=== PATIENT | female | born 1995 | race Caucasian/White ===

== ENCOUNTER 2017-02-24 18:48 | Emergency (ER) | payer OTHER ==
[~2017-02-24] VITALS: Ht 154.9 cm; Wt 84.8 kg
[2017-02-24] MEDS ORDERED: IBUP-1114 PO (18:59)
[2017-02-24] MEDS ORDERED: BAYE325T12 PO (18:59)
[2017-02-24] MEDS ORDERED: KETOROLAC 60 MG/2 ML VIAL (J1885) IM ONE (19:15)
[2017-02-24] MEDS ORDERED: GI COCKTAIL 50ML BTL(HYOSCYAMINE/MAALOX/LIDOCAINE VISCOUS)(1:3:1) PO ONE (19:15)
[2017-02-24] MEDS ORDERED: diazePAM 5 MG TAB PO ONE (19:15)
[2017-02-24] MEDS ORDERED: NORCO, ANEXSIA 5/325MG TABLET (HYDROcodone/ACETAMINOPHEN) PO ONE (19:15)
[2017-02-24] MEDS ORDERED: PANTOPRAZOLE 40MG TAB (PROTONIX) PO ONE (19:15)
[2017-02-24] MEDS ORDERED: CYCL10TA PO (20:18)
[2017-02-24] MEDS ORDERED: PRIL20CA9 PO (20:18)
[2017-02-24] MEDS ORDERED: NAPR500T PO (20:18)
[2017-02-24 20:26] VITALS: BP 133/75
== END 2017-02-24 20:27 | disposition home or self-care (01) ==
LOC: M ED 18:48
DX: M54.5 Low back pain (principal); G89.29 Other chronic pain; K21.9 Gastro-esophageal reflux disease without esophagitis
CPT/HCPCS: 81025; 96372; 99283; J1885

== ENCOUNTER → 2017-04-14 | Outpatient (REF) | payer OTHER ==
[~2017-04-14] MED LIST: BAYE325T12 PO; CYCL10TA PO; IBUP-1114 PO; MOTR200T44 PO; NAPR500T PO; PRIL20CA9 PO; TYLE500T78 PO
== END ==
LOC: M SFHCLERA 15:00
PROVIDERS: ATTEND Nurse Practitioner Family
DX: N92.6 Irregular menstruation, unspecified (principal)

== ENCOUNTER 2017-06-11 19:57 | Emergency (ER) | payer OTHER ==
[~2017-06-11] VITALS: Ht 154.9 cm; Wt 90.9 kg
[2017-06-11 19:57] VITALS: BP 141/93
[~2017-06-11 19:57] MED LIST changes: -MOTR200T44 PO; -TYLE500T78 PO
[2017-06-11] MEDS ORDERED: MOTR200T44 PO (20:16)
[2017-06-11] MEDS ORDERED: TYLE500T78 PO (20:16)
[2017-06-11] MEDS ORDERED: CYCLOBENZAPRINE 10 MG TAB PO ONE (21:00)
[2017-06-11] MEDS ORDERED: CYCL10TA PO (21:01)
== END 2017-06-11 21:18 | disposition home or self-care (01) ==
LOC: M ED 19:57
DX: M54.41 Lumbago with sciatica, right side (principal); Z72.0 Tobacco use

== ENCOUNTER 2017-07-02 08:48 | Outpatient (RCR) | payer OTHER ==
[~2017-07-02 08:48] MED LIST changes: +MOTR200T44 PO; +TYLE500T78 PO
== END 2017-07-16 ==
LOC: M PT 08:48
PROVIDERS: ATTEND Nurse Practitioner Family
DX: Z51.89 Encounter for other specified aftercare (principal); M54.5 Low back pain

== ENCOUNTER 2018-08-29 15:53 | Outpatient (CLI) | payer OTHER ==
[~2018-08-29] VITALS: Ht 154.9 cm; Wt 90.4 kg
[~2018-08-29 15:53] MED LIST changes: +NAPR-50 PO; -NAPR500T PO
[2018-08-29] MEDS ORDERED: OMEP10CASR PO (16:11)
[2018-08-29] MEDS ORDERED: MAGN1TAB25 PO (16:11)
[2018-08-29] MEDS ORDERED: PRENTAB9 PO (16:11)
[2018-08-29 16:20] VITALS: BP 122/70
== END 2018-08-29 17:10 | disposition home or self-care (01) ==
LOC: M LDO 15:53
PROVIDERS: ATTEND Obstetrics & Gynecology
DX: O99.89 Other specified diseases and conditions complicating pregnancy, childbirth and the puerperium (principal); R10.30 Lower abdominal pain, unspecified; Z3A.20 20 weeks gestation of pregnancy
CPT/HCPCS: 87086; G0378; G0463

== ENCOUNTER → 2018-10-17 | Outpatient (REF) | payer OTHER ==
[~2018-10-17] MED LIST changes: +AZIT-12 PO; +DIFL150T PO; +MAGN1TAB25 PO; +OMEP10CASR PO; +PRENTAB9 PO
== END ==
LOC: M SFHCLERA 12:36
PROVIDERS: ATTEND Nurse Practitioner Family
DX: R11.10 Vomiting, unspecified (principal)

== ENCOUNTER 2018-10-19 18:10 | Emergency (ER) | payer OTHER ==
[~2018-10-19] VITALS: Ht 154.9 cm; Wt 90.9 kg
[~2018-10-19 18:10] MED LIST changes: -AZIT-12 PO; -DIFL150T PO
[2018-10-19] MEDS ORDERED: AZIT-12 PO (21:24)
[2018-10-19] MEDS ORDERED: DIFL150T PO (21:24)
[2018-10-19] MEDS ORDERED: AZITHROMYCIN 250 MG TAB PO ONE (21:30)
[2018-10-19 21:39] VITALS: BP 131/77
== END 2018-10-19 22:22 | disposition home or self-care (01) ==
LOC: M ED 18:10
DX: O99.89 Other specified diseases and conditions complicating pregnancy, childbirth and the puerperium (principal); H65.03 Acute serous otitis media, bilateral; O99.513 Diseases of the respiratory system complicating pregnancy, third trimester; O99.613 Diseases of the digestive system complicating pregnancy, third trimester; O99.343 Other mental disorders complicating pregnancy, third trimester; Z3A.28 28 weeks gestation of pregnancy; Z79.899 Other long term (current) drug therapy

== ENCOUNTER 2018-10-26 12:02 | Outpatient (CLI) | payer OTHER ==
[~2018-10-26] VITALS: Ht 154.9 cm; Wt 91.0 kg
[~2018-10-26 12:02] MED LIST changes: +AZIT-12 PO; +DIFL150T PO
[2018-10-26 12:36] VITALS: BP 126/76
[2018-10-26] MEDS ORDERED: LACTATED RINGER'S 1000 ML IV STA (12:38)
[2018-10-26] MEDS ORDERED: LR 1,000 ML IV SCH (12:38)
[2018-10-26] MEDS ORDERED: MAPA500T2 PO (12:53)
[2018-10-26] MEDS ORDERED: ONDANSETRON 4MG/2ML VIAL (J2405) IV ONE (13:00)
[2018-10-26] MEDS ORDERED: BICITRA 30ML SOLN UDC PO ONE (13:00)
[2018-10-26 13:22] LABS: AMORPHOUS SEDIMENT SMALL (NEGATIVE); APPEARANCE, URINE CLOUDY (CLEAR); BACTERIA, URINE AUTO NEGATIVE (NEGATIVE); BILIRUBIN, URINE AUTO NEGATIVE (NEGATIVE); BLOOD, URINE BLOOD NEGATIVE (NEGATIVE); COLOR, URINE AMBER (YELLOW); GLUCOSE, URINE (UA) AUTO NEGATIVE (NEGATIVE); KETONE, URINE AUTO NEGATIVE (NEGATIVE); LEUKOCYTE ESTERASE, URINE AUTO 2+ (NEGATIVE); MUCUS, URINE MODERATE (NEGATIVE); NITRITE, URINE AUTO NEGATIVE (NEGATIVE); PROTEIN, URINE AUTO 1+ mg/dL (NEGATIVE); RBC, URINE AUTO 3 /HPF (0-3); SPECIFIC GRAVITY URINE AUTO 1.024 (1.002-1.035); SQUAMOUS EPITHELIAL CELL UR AU 25 /HPF (0-6); WBC, URINE AUTO 18 /HPF (0-3)
[2018-10-26 14:46] VITALS: BP 117/66
--- NOTE | 2018-10-26 17:02 | IPNPDOC ---
Text Note Date of Service The patient was seen on 10/26/18. NOTE Triage Note Pt is a 23yo with SIUP at approx 28wk presenting to triage for CC of "dehydration"- she states she was told by RAJENDRA to come in for IV hydration since she has had 1.5wk of emesis after eating every meal except breakfast. She notes she was in the ER for IV hydration a week ago. She states this she has had very bad GERD symptoms that cause her to vomit after eating. She has Rx omeprazole but states "it doesn't work, so I just chew gum". She has no obstetric complaints- no bleeding, LOF, ctx. She feels good movement. Vitals wnl, afebrile General: WDWN, NAD, resting comfortably in bed Abdomen: soft, gravid, NTTP Extremities: no edema BLE Cat I FHRT with +accels, -decels, mod mar [place]: no ctx Labs: urinalysis shows no ketones, +WBC but also +squams so not a clean catch (no bacteria), spec grav 1.024 Assessment: Pt is a 23yo with SIUP at approx 28wk with 1.5wk of emesis related to her uncontrolled GERD, not compliant on her omeprazole. She was given 1L of LR IVF in triage with 8mg IV zofran and 30mg PO bicitra. After that, she was able to eat a mehta salad for lunch without emesis. Reassuring assessment. Vitals wnl, benign exam. No ketones in urine but spec grav 1.024. Plan: -safe for discharge home -pt instructed to continue taking her omeprazole because it will have at least some effect in decreasing stomach acid -I recommend that she also be started on carafate 1g BID to further decrease her GERD symptoms (Ahlta was not functioning properly this afternoon, so I was unable to order it for her. I instructed her to call RAJENDRA [facility] tomorrow for Rx.) -Recommended avoiding any foods that especially trigger her GERD. Sleep slightly propped up. Don't eat close to bedtime. Avoid spicy foods/chocolate/caffeine, etc. -Continue routine OB visits -Return precautions discussed MD Mahesh David Katrina D MD Oct 26, 2018 17:02
== END 2018-10-26 16:30 | disposition home or self-care (01) ==
LOC: M LDO 12:02
PROVIDERS: ATTEND Obstetrics & Gynecology
DX: O21.2 Late vomiting of pregnancy (principal); O99.63 Diseases of the digestive system complicating the puerperium; K21.9 Gastro-esophageal reflux disease without esophagitis; O99.283 Endocrine, nutritional and metabolic diseases complicating pregnancy, third trimester; E86.0 Dehydration; Z3A.28 28 weeks gestation of pregnancy
CPT/HCPCS: 59025; 81001; G0378; G0463; J2405